=== PATIENT | female | born 1975 | race Caucasian/White ===

== ENCOUNTER 2017-03-25 05:59 | Inpatient (IN) | payer OTHER ==
[2017-02-25 14:00] VITALS: Ht 154.9 cm; Wt 94.9 kg
--- NOTE | 2017-02-25 14:48 | PAT Medication Instructions ---
Service Date Feb 25, 2017. Current Home Medication List Methimazole (Methimazole), 1 TAB PO HS Ondansetron Hcl (Zofran), 4 MG PO UD PRN for Nausea Oxycodone/Acetaminophen 5MG/325MG (Percocet 5MG/325MG), 0.5 TABLET PO UD PRN for Pain Prasterone (Dhea) (Dhea), QAM Propranolol (Inderal), 40 MG PO HS Ranitidine (Zantac), 150 MG PO HS Sumatriptan Succinate (Imitrex), 100 MG PO PRN Vortioxetine HBr (Trintellix), 1 TAB PO HS [Adrenal Supplement], BID [Dim], Unknown Dose QAM [Estrogen...] [Progesteron], 1 APPLN TOP HS Medication Instructions For Your Scheduled Surgery [Estrogen Pellets] - continue as directed - Hold the following medications 24 hours prior to surgery: [Progesterone], 1 APPLN TOP HS - Hold the following medications the morning of surgery: [Dim], Unknown Dose QAM Prasterone (Dhea) (Dhea), QAM - Take the following medications the morning of surgery with a sip of water: Sumatriptan Succinate (Imitrex), 100 MG PO PRN Oxycodone/Acetaminophen 5MG/325MG (Percocet 5MG/325MG), 0.5 TABLET PO UD PRN for Pain (okay to take up to 4 hours prior to surgery if needed) Ondansetron Hcl (Zofran), 4 MG PO UD PRN for Nausea (if needed) [Adrenal Supplement], BID - Take the following medications as scheduled the night before surgery: Sumatriptan Succinate (Imitrex), 100 MG PO PRN(if needed) Propranolol (Inderal), 40 MG PO HS Oxycodone/Acetaminophen 5MG/325MG (Percocet 5MG/325MG), 0.5 TABLET PO UD PRN for Pain(if needed) Ondansetron Hcl (Zofran), 4 MG PO UD PRN for Nausea(if needed) Methimazole (Methimazole), 1 TAB PO HS Ranitidine (Zantac), 150 MG PO HS [Adrenal Supplement], BID Vortioxetine HBr (Trintellix), 1 TAB PO HS If you have any questions please call us at [phone] or [phone] or [phone]
--- NOTE | 2017-02-25 15:06 | HISTORY & PHYSICAL EXAMINATION ---
DATE OF ADMISSION: 03/25/2017 CHIEF COMPLAINT: Bilateral knee pain. HISTORY OF PRESENT ILLNESS: Jennifer is a 41-year-old female with a multiple year history of bilateral knee pain. The patient rates her pain at 9-10/10. She has pain with her daily activities. She has limited standing and walking tolerance. Pain is worse with weightbearing. The patient has had a left knee arthroscopy, physical therapy, injections, and bracing without relief. She is unable to take NSAIDs due to her recent gastric sleeve surgery. She has failed conservative treatment and is scheduled for bilateral knee replacement. PAST MEDICAL HISTORY: Sleep apnea with CPAP, hyperthyroidism and anxiety. She denies heart disease, diabetes or DVT. PAST SURGICAL HISTORY: Gastric sleeve, partial thyroidectomy, oophorectomy, multiple knee arthroscopy on the left, exploratory laparotomy and lithotripsy. SOCIAL HISTORY: The patient denies alcohol or tobacco use. She lives in a 2-story home. She is and self employed. FAMILY HISTORY: Negative for DVT. MEDICATIONS: Trintellix 10 mg daily, propranolol 40 mg daily, ranitidine 150 mg b.i.d., Methazel 1 mg b.i.d., Imitrex 100 mg daily p.r.n., and Zofran 4 mg p.r.n. ALLERGIES: LATEX AND KETAMINE. REVIEW OF SYSTEMS: See HPI. Ten other systems reviewed. Also, positive for chills and cough. PHYSICAL EXAMINATION: VITAL SIGNS: Height 5 feet 1 inch and weight 210 pounds. BMI is 40. GENERAL: This is a well-developed and well-nourished female, who is alert and oriented x3. Mood and affect are appropriate. HEENT: Normocephalic and atraumatic. Mucous membranes are moist and intact. NECK: Supple without lymphadenopathy. HEART: Regular rate and rhythm without murmurs, rubs or gallops. LUNGS: Clear to auscultation without wheezes or rhonchi. ABDOMEN: Soft and nontender. Bowel sounds are equal and active. EXTREMITIES: No ecchymosis, redness or warmth. No effusion. No distal edema. She has neutral alignment. Range of motion is from 0-115 degrees with +1 laxity. She is neurovascularly intact with +5/5 strength. She does have scars noted on the left from her previous arthroscopy. Otherwise exam is the same. X-RAY EXAMINATION: AP and lateral views show joint space narrowing and osteophyte formation. IMPRESSION: Degenerative joint disease, bilateral knees. PLAN: The patient will be admitted for a bilateral total knee arthroplasty. We will plan on aspirin for DVT prophylaxis. If cleared by her GI surgeon, may need to consider Xarelto or Lovenox given her current NSAID sensitivity. The patient is considering a short stay at [facility] postoperatively. WALLY
[2017-02-25 15:23] LABS: BASO % 0.4 %; BASO ABS # 0.02 K/uL (0-0.2); EOS % 2.7 %; EOS ABS # 0.14 K/uL (0-0.5); HEMOGLOBIN 15.3 g/dL (12.0-16.0); IG# 0.01 K/uL (0.00-0.02); LYMPH % 47.5 %; LYMPH ABS # 2.47 K/uL (1.2-3.4); MEAN CELL VOLUME 89.6 fL (80-100); MEAN CORPUSCULAR HEMOGLOBIN 31.2 pg (25-34); MEAN CORPUSCULAR HGB CONC 34.8 g/dl (32-36); MEAN PLATELET VOLUME 10.6 fL (7.4-10.4); MONO ABS # 0.47 K/uL (0.11-0.59); NEUT % 40.2 %; NEUT ABS # 2.09 K/uL (1.4-6.5); PLATELET COUNT 183 K/uL (130-400); RED CELL DISTRIBUTION WIDTH CV 13.9 % (11.5-14.5); RED CELL DISTRIBUTION WIDTH SD 46.1 fL (36.4-46.3)
[2017-02-25 15:31] LABS: PTT PATIENT 27.5 SECONDS (21.0-31.0)
--- NOTE | 2017-02-25 15:47 | DIAGNOSTIC IMAGING REPORT ---
CHEST 2 VIEWS ROUTINE HISTORY: Preop. COMPARISON: None. FINDINGS: The lungs are clear. Cardiac silhouette is normal in size. No pleural effusions. No pneumothorax. IMPRESSION: No acute process. Electronically signed by: Darnell Borrero M.D. 02/25/2017 3:46 PM Dictated Date/Time: 02/25/2017 3:41 PM
[2017-02-25 16:43] LABS: ALBUMIN 3.6 gm/dl (3.4-5.0); CREATININE 0.69 mg/dl (0.60-1.20); POTASSIUM 4.1 mmol/L (3.5-5.1)
[2017-02-26 06:58] LABS: HEMOGLOBIN A1C 5.5 % (4.5-5.6)
[~2017-03-25] VITALS: Ht 154.9 cm; Wt 94.9 kg
[2017-03-25] VITALS (10 sets, daily range): BP systolic 97–132; BP diastolic 61–82; PULSE 46–88; TEMP 36.2–36.5; O2SAT 93–100
[~2017-03-25 05:59] MED LIST: ADRENAL SUPPLEMENT; CELEBREX - ALLERGY NOTED TO ORDERED MEDICATION SCH; DIM; ONDA4TAB46 PO; OXYC-57 PO; PRAS1CAP3; PROGESTERON TOP; PROP20TA67 PO; SUMA100T16 PO; TPZ5 PO; VORT10TA12 PO; ZNTT/150 PO; [UNRECOGNIZED DRUG - CODE]; [UNRECOGNIZED DRUG - REMARK] SCH
[2017-03-25] MEDS ORDERED: LACTATED RINGER'S 1000ML 1,000 ML IV SCH (06:00)
[2017-03-25] MEDS ORDERED: CEFAZOLIN 2000MG IV PUSH 10 ML IV SCH (06:00)
[2017-03-25] MEDS ORDERED: CeleBREX 200 MG CAP PO SCH (06:00)
[2017-03-25] MEDS ORDERED: LACTATED RINGER'S 1000ML 500 ML IV SCH (06:00)
[2017-03-25] MEDS ORDERED: FAMOTIDINE 20 MG TAB PO SCH (06:00)
[2017-03-25] MEDS ORDERED: DEXAMETHASONE 4 MG TAB PO SCH (06:00)
[2017-03-25] MEDS ORDERED: GABAPENTIN 300 MG CAP PO SCH (06:00)
[2017-03-25] MEDS ORDERED: METOCLOPRAMIDE HCL 10 MG TAB PO SCH (06:00)
[2017-03-25] MEDS ORDERED: ACETAMINOPHEN 500 MG TAB PO SCH (06:00)
[2017-03-25] MEDS ORDERED: ROPIVACAINE 5MG/ML 30 ML 150 MG, BUPIVACAINE 0.5% MPF INJ 30 ML, EpINEphrine HCL INJ 0.... INFIL SCH ×16 (06:00)
[2017-03-25] MEDS ORDERED: LACTATED RINGER'S 1000ML IV SCH (06:00)
[2017-03-25] MEDS ORDERED: BUPIVACAINE 0.25% 30 ML VIAL ONE (06:26)
[2017-03-25] MEDS ORDERED: BUPIVACAINE 0.5 % 5 MG/1 ML PF 10ML VIAL ONE (06:26)
[2017-03-25] MEDS ORDERED: FENTANYL CITRATE INJ 50 MCG/1 ML 2 ML VIAL ONE ×2 (06:29→08:43)
[2017-03-25] MEDS ORDERED: MIDAZOLAM HCL 1 MG/ML 2ML VIAL ONE ×3 (06:29→08:33)
[2017-03-25] MEDS ORDERED: PROPOFOL IV EMULSION 10 MG/ML 20 ML VIAL IV ONE ×3 (06:30→10:33)
[2017-03-25] MEDS: TRANEXAMIC ACID INJ 1,000 MG in SYRINGE 0 ML IV SCH ×2 (06:30→07:52)
--- NOTE | 2017-03-25 07:00 | History & Physical Bridge Note ---
H&P Re-Evaluation Bridge Note: I have examined the patient, reviewed the History & Physical and in the interval since the performance of the History & Physical I have noted the following changes of clinical significance: No changes noted
[2017-03-25] MEDS ORDERED: BACITRACIN 50000 UNIT VIAL ONE (07:20)
[2017-03-25] MEDS ORDERED: POVIDONE-IODINE OP SOLN 30 ML BTL ONE (07:20)
[2017-03-25] MEDS ORDERED: ROPIVACAINE 0.5% 5 MG/ML 30 ML VIAL ONE (07:58)
[2017-03-25] MEDS ORDERED: ATROPINE SULFATE 0.1 MG/ML 5ML SYR IV PRN ×2 (08:45→11:15)
[2017-03-25] MEDS ORDERED: EpHEDrine SULFATE INJ 50 MG/ML AMP IV PRN ×2 (08:45→11:15)
[2017-03-25] MEDS ORDERED: NALOXONE HCL 0.4 MG/1 ML VIAL/CARP IV PRN (08:45)
[2017-03-25] MEDS ORDERED: ONDANSETRON INJ 2 MG/ML 2 ML VIAL IV PRN (08:45)
[2017-03-25] MEDS ORDERED: FLUMAZENIL 0.1 MG/1 ML 10 ML VIAL IV PRN (08:45)
--- NOTE | 2017-03-25 10:30 | [facility] Operative Report ---
Operative Report Operative Date Mar 25, 2017. Pre-Operative Diagnosis Degenerative Joint Disease, Bilateral Knees Post-Operative Diagnosis Degenerative Joint Disease, Bilateral Knees Procedure(s) Performed Bilateral Total Knee Arthroplasty utilizing Macedo & Nephew journey 2 patient matched total knee arthroplasty right size 3 femur to tibia 12 poly-29 oval patella left size 3 femur to tibia [address] Sabrina [address] Laron Spencer Supervisor Dock Surgeon(s) Wilmer Vargas PA-C Estimated Blood Loss Right Knee = 5ml; Left Knee = 5 ml Findings Patient presents with long-standing history of severe bilateral DJD she's failed attempts at conservative management physical therapy anti-inflammatories relative rest activity modification screws and rhonchi gastric bypass surgery attempt for further weight loss still has a continued complaints one going pain varus alignment subchondral cystic formation marginal osteophytes and sclerosis presents for total knee arthroplasty Specimens Permanent Solution: A.) Right Knee Bone and Tissue B.) Left Knee Bone and Tissue Complication(s) None Disposition Recovery Room / PACU Indications Patient presents with long-standing history of severe DJD bilateral knees for bilateral total knee arthroplasty after failing times a conservative management including physical therapy anti-inflammatories relative rest activity modifications she's appreciate gastric bypass as well continues to complain with pain Nourse wants to bracing or a conservative management presents for total knee arthroplasty bilaterally Description of Procedure After proper prepping and draping of the bilateral lower extremities, an anterior midline incision was made over the region of the extensor extensor mechanism of the left knee. After meticulous hemostasis was obtained and maintained in subcutaneous tissues a medial parapatellar incision was made The patella was subluxed lateralward the medial lateral gutter were cleaned from any hypertrophic synovitis and scar tissue of the distal femoral block was placed and the distal femoral osteotomy cut was made subsequently the chamfers anterior and posterior osteotomy cuts were made utilizing the 4-in-1 block the tibia was subsequently subluxed anteriorward medial and ateral meniscal remnants were excised in their entirety remnants of the anterior and posterior cruciate ligaments were excised in their entirety excellent exposure of the proximal tibia was obtained the tibial osteotomy guide was placed on the proximal tibial osteotomy cut was made once again the knee was irrigated with copious amounts of sterile saline solution the patella was subsequently everted lateralward thickened scar tissue around the patella was removed the patella was subsequently cut utilizing a freehand technique and was drilled prepared for final preparation and placement of patella socially flexion-extension gaps were checked and the equal and symmetric trials were placed to the appropriate femoral and tibial trials with poly-spacer being placed for equal flexion and extension gaps and full range of motion including extension to 0 and flexion to 140 the trial components after having been taken to recovery range of motion was subsequently removed meticulous hemostasis was obtained and maintained subsequently a knee block injection of joint cocktail including ropivacaine 0.5 % 150 mg. Bupivacaine 0.5% epinephrine 1-200,030 mL's toradol 30 mg dexamethasone 4 mg ketamine 10 mg clonidine 100 micrograms normal saline solution 30 mg was infiltrated into the soft tissues of the posterior knee medial lateral gutters and periosteal synovium special attention was paid to protect neurovascular structures at all times subsequently trial components having been removed the knee was irrigated with sterile saline solution. debris was removed the proximal tibia was subsequently prepared and was made ready for the placement of the tibial component tibial component was also cemented and tamped into position the femoral component was subsequently placed and cemented in the position the patellar component was subsequently cemented in position because hemostasis once again obtained and maintained wound having been thoroughly irrigated with debridement and debridement lavage was performed as well as a medial parapatellar incision closed with #1 Vicryl in interrupted fashion subcutaneous was closed with #2 Vicryl skin was closed with skin clips Next, an anterior midline incision was made over the region of the extensor extensor mechanism of the right knee. After meticulous hemostasis was obtained and maintained in subcutaneous tissues a medial parapatellar incision was made The patella was subluxed lateralward the medial lateral gutter were cleaned from any hypertrophic synovitis and scar tissue of the distal femoral block was placed and the distal femoral osteotomy cut was made subsequently the chamfers anterior and posterior osteotomy cuts were made utilizing the 4-in-1 block the tibia was subsequently subluxed anteriorward medial and ateral meniscal remnants were excised in their entirety remnants of the anterior and posterior cruciate ligaments were excised in their entirety excellent exposure of the proximal tibia was obtained the tibial osteotomy guide was placed on the proximal tibial osteotomy cut was made once again the knee was irrigated with copious amounts of sterile saline solution the patella was subsequently everted lateralward thickened scar tissue around the patella was removed the patella was subsequently cut utilizing a freehand technique and was drilled prepared for final preparation and placement of patella socially flexion-extension gaps were checked and the equal and symmetric trials were placed to the appropriate femoral and tibial trials with poly-spacer being placed for equal flexion and extension gaps and full range of motion including extension to 0 and flexion to 140 the trial components after having been taken to recovery range of motion was subsequently removed meticulous hemostasis was obtained and maintained subsequently a knee block injection of joint cocktail including ropivacaine 0.5 % 150 mg. Bupivacaine 0.5% epinephrine 1-200,030 mL's toradol 30 mg dexamethasone 4 mg ketamine 10 mg clonidine 100 micrograms normal saline solution 30 mg was infiltrated into the soft tissues of the posterior knee medial lateral gutters and periosteal synovium special attention was paid to protect neurovascular structures at all times subsequently trial components having been removed the knee was irrigated with sterile saline solution. debris was removed the proximal tibia was subsequently prepared and was made ready for the placement of the tibial component tibial component was also cemented and tamped into position the femoral component was subsequently placed and cemented in the position the patellar component was subsequently cemented in position because hemostasis once again obtained and maintained wound having been thoroughly irrigated with debridement and debridement lavage was performed as well as a medial parapatellar incision closed with #1 Vicryl in interrupted fashion subcutaneous was closed with #2 Vicryl skin was closed with skin clips.. PA-C was necessary for prepping and drapping as well as wound closure of deep fascia Sub cutaneous tissue and skin and was necessary for the case. A sterile compressive dressings were placed, patient was taken to recovery in stable condition of report dictated by Tj I attest to the content of the Intraoperative Record and any orders documented therein. Any exceptions are noted below. I attest to the content of the Intraoperative Record and any orders documented therein. Any exceptions are noted below.
[2017-03-25] MEDS ORDERED: SUMATRIPTAN SUCC TAB 100 MG TAB PO PRN (11:15)
[2017-03-25] MEDS ORDERED: ALUMINUM/MAGNESIUM/SIMETH (MAALOX MAX) 30 ML UDC PO PRN (11:15)
[2017-03-25] MEDS ORDERED: MoRPHine SULFATE 2 MG/ML CARP IV PRN (11:15)
--- NOTE | 2017-03-25 11:44 | DIAGNOSTIC IMAGING REPORT ---
L KNEE 1 OR 2 VIEWS ROUTINE CLINICAL HISTORY: Postoperative evaluation. COMPARISON: None FINDINGS: Alignment of the total left knee arthroplasty is in anatomic. There is no fracture or unexpected radiopaque foreign body. Surgical drains are in place. IMPRESSION: Expected findings following total left knee arthroplasty. Electronically signed by: Brien Raymundo M.D. 03/25/2017 11:43 AM Dictated Date/Time: 03/25/2017 11:42 AM
--- NOTE | 2017-03-25 11:45 | DIAGNOSTIC IMAGING REPORT ---
R KNEE 1 OR 2 VIEWS ROUTINE CLINICAL HISTORY: Postoperative evaluation. COMPARISON: None FINDINGS: Alignment of the total right knee arthroplasty is anatomic. There is no fracture or unexpected radiopaque foreign body. Surgical drains are in place. IMPRESSION: Expected findings following total right knee arthroplasty. Electronically signed by: Brien Raymundo M.D. 03/25/2017 11:43 AM Dictated Date/Time: 03/25/2017 11:43 AM
--- NOTE | 2017-03-25 11:55 | Anesthesiology Progress Note ---
Anesthesia Post Op Note Date & Time Mar 25, 2017 at 11:55 Vital Signs Pain Intensity: 0 Vital Signs Past 12 Hours Date Time Temp Pulse Resp B/P (MAP) Pulse Ox O2 Delivery O2 Flow Rate FiO2 03/25/17 11:50 54 18 111/64 99 Nasal Cannula 2 03/25/17 11:40 59 18 103/61 99 Nasal Cannula 2 03/25/17 11:30 66 18 107/69 99 Nasal Cannula 2 03/25/17 11:20 54 18 112/63 100 Oxymask 10 03/25/17 11:13 36.0 59 18 94/62 100 Oxymask 10 03/25/17 06:59 36.5 72 18 132/82 97 Room Air Notes Mental Status: alert / awake / arousable, participated in evaluation Pt Amnestic to Procedure: Yes Nausea / Vomiting: adequately controlled Pain: adequately controlled Airway Patency, RR, SpO2: stable & adequate BP & HR: stable & adequate Hydration State: stable & adequate Neuraxial Anesthesia: was administered, sensory block is resolving Anesthetic Complications: no major complications apparent
[2017-03-25] MEDS: D5W AND 1/2NSS + 20MEQ KCL 1,000 ML IV SCH (14:35)
[2017-03-25] MEDS ORDERED: ACETAMINOPHEN IV 100 ML IV SCH (15:00)
[2017-03-25] MEDS ORDERED: MoRPHine SULFATE 10 MG/ML CARP/VIAL IV PRN (15:00)
[2017-03-25] MEDS ORDERED: MoRPHine SULFATE 4 MG/ML 1 ML CARP\\VIAL IV PRN (15:00)
[2017-03-25] MEDS: ACETAMINOPHEN IV 1000MG/100ML IV SCH ×2 (15:48→22:40)
[2017-03-25] MEDS: OXYCODONE HCL IR 5 MG TAB (IMMEDIATE RELEASE) PO PRN ×2 (16:39→20:54)
[2017-03-25] MEDS: CEFAZOLIN IV 2,000 MG in SYRINGE 0 ML IV SCH (16:43)
[2017-03-25] MEDS ORDERED: NURSING VERBAL MED ORDER ONE (19:45)
[2017-03-25] MEDS: TRAMADOL HCL 50 MG TAB PO PRN (19:47)
[2017-03-25] MEDS: DOCUSATE SODIUM 100 MG CAP PO SCH (20:40)
[2017-03-25] MEDS: METHIMAZOLE 5 MG TAB PO SCH (20:40)
[2017-03-25] MEDS: RANITIDINE HCL 150 MG TAB PO SCH (20:40)
[2017-03-25] MEDS: PROPRANOLOL HCL 20 MG TAB PO SCH (20:42)
[2017-03-25] MEDS: SENNA 8.6 MG TAB PO SCH (20:42)
[2017-03-25] MEDS: ONDANSETRON INJ 2 MG/ML 2 ML VIAL IV PRN (20:53)
[2017-03-25] MEDS: VORTIOXETINE HBR 10 MG TAB PO SCH (21:00)
[2017-03-25] MEDS: LORAZEPAM INJ 0.5 MG in SYRINGE 0.75 ML IV PRN (22:40)
[2017-03-26] MEDS: D5W AND 1/2NSS + 20MEQ KCL 1,000 ML IV SCH ×2 (00:44→10:35)
[2017-03-26] MEDS: CEFAZOLIN IV 2,000 MG in SYRINGE 0 ML IV SCH (00:53)
[2017-03-26] MEDS: OXYCODONE HCL IR 5 MG TAB (IMMEDIATE RELEASE) PO PRN ×5 (00:54→21:28)
[2017-03-26 03:45] VITALS: BP 94/60; PULSE 79; TEMP 36.6; O2SAT 95
[2017-03-26] MEDS: TRAMADOL HCL 50 MG TAB PO PRN ×3 (04:02→16:45)
[2017-03-26] MEDS: ONDANSETRON INJ 2 MG/ML 2 ML VIAL IV PRN ×2 (05:24→17:14)
[2017-03-26 05:38] LABS: HEMATOCRIT 35.2 % (37-47); MEAN CORPUSCULAR HEMOGLOBIN 30.7 pg (25-34); MEAN CORPUSCULAR HGB CONC 34.1 g/dl (32-36); MEAN PLATELET VOLUME 10.6 fL (7.4-10.4); PLATELET COUNT 183 K/uL (130-400); RED CELL DISTRIBUTION WIDTH CV 13.5 % (11.5-14.5); RED CELL DISTRIBUTION WIDTH SD 44.5 fL (36.4-46.3); WHITE BLOOD COUNT 15.77 K/uL (4.8-10.8)
[2017-03-26 05:53] LABS: INR 1.1 (0.9-1.1)
[2017-03-26 06:11] LABS: CALCIUM 8.4 mg/dl (8.5-10.1); CREATININE 0.79 mg/dl (0.60-1.20); POTASSIUM 4.4 mmol/L (3.5-5.1)
[2017-03-26] MEDS: ACETAMINOPHEN IV 1000MG/100ML IV SCH ×3 (06:39→22:43)
--- NOTE | 2017-03-26 07:24 | Orthopedic Progress Note ---
Orthopedic Progress Note Date of Service Mar 26, 2017. Subjective Post OP Day: 1 Reports: complaints (knee pain), Denies: chest pain, SOB, nausea / vomiting, light headedness, calf pain Additional Notes: Pt states that pain meds do help but do not last long. Discussed adding Oxycontin to her regimen. Also would like to have a multivitamin. States that she has some pain in the back of the knees R>L and thighs. Some of the pain in the right posterior knee is radiating into the calf. No other complaints. Objective calves soft nontender, N/V intact, dressing C/D/I, A&O x3, toes mobile, hemovac drainage (L 130ml R 100ml) No increased pain with palpation. No point tenderness Date Time Temp Pulse Resp B/P (MAP) Pulse Ox O2 Delivery O2 Flow Rate FiO2 03/26/17 03:45 36.6 79 18 94/60 (71) 95 Room Air 03/25/17 22:55 36.5 65 18 118/67 (84) 93 Room Air 03/25/17 22:50 Room Air 03/25/17 20:39 74 98/61 (73) 03/25/17 19:10 36.2 88 18 102/63 (76) 95 Room Air 03/25/17 16:15 97 Nasal Cannula 03/25/17 15:18 36.2 81 18 98/62 (74) 97 Nasal Cannula 2.0 03/25/17 14:15 36.2 49 16 97/62 (74) 100 Nasal Cannula 2.0 03/25/17 13:15 36.2 57 15 109/67 (81) 98 Nasal Cannula 2.0 03/25/17 12:45 36.3 46 15 101/67 (78) 100 Nasal Cannula 2.0 03/25/17 12:15 99 Nasal Cannula 3.0 03/25/17 12:15 36.3 56 16 111/65 (80) 99 Nasal Cannula 3.0 03/25/17 12:15 Nasal Cannula 3.0 03/25/17 11:55 36.2 54 18 122/69 99 Nasal Cannula 2 03/25/17 11:50 54 18 111/64 99 Nasal Cannula 2 03/25/17 11:40 59 18 103/61 99 Nasal Cannula 2 03/25/17 11:30 66 18 107/69 99 Nasal Cannula 2 03/25/17 11:20 54 18 112/63 100 Oxymask 10 03/25/17 11:13 36.0 59 18 94/62 100 Oxymask 10 Laboratory Results 24 Hours: Test 03/26/17 05:19 Hematocrit 35.2 % Hemoglobin 12.0 g/dL Prothromb Time International Ratio 1.1 Prothrombin Time 11.2 SECONDS Assessment & Plan Assessment: Bilateral TKA Sleep apnea with CPAP, hyperthyroidism and anxiety; h/o gastric sleeve placement Plan: PT/OT Planning for [facility] Inhouse Planning Pain Management: Oxycontin, Ultram, Morphine, IV Tylenol, Oxy IR DVT Prophylaxis: TEDs, SCDs, Lovenox Discharge Planning Discharge Planning: rehab hospital
[2017-03-26 07:25] VITALS: BP 98/67; PULSE 65; TEMP 36.5; O2SAT 93
[2017-03-26] MEDS ORDERED: VORTIOXETINE HBR 10 MG TAB PO SCH (09:00)
[2017-03-26] MEDS: DOCUSATE SODIUM 100 MG CAP PO SCH ×2 (09:20→21:32)
[2017-03-26] MEDS: ENOXAPARIN 40 MG/0.4 ML SYR SQ SCH (09:20)
[2017-03-26] MEDS: MULTIVITAMIN TAB PO SCH (09:24)
[2017-03-26] MEDS: OXYCODONE HCL 10 MG TABCR (OXYCONTIN) PO SCH ×2 (09:25→21:27)
--- NOTE | 2017-03-26 10:47 | Anesthesiology Progress Note ---
Anesthesia Post Op Note Date & Time Mar 26, 2017 at 10:47 Vital Signs Vital Signs Past 12 Hours Date Time Temp Pulse Resp B/P (MAP) Pulse Ox O2 Delivery O2 Flow Rate FiO2 03/26/17 07:25 36.5 65 18 98/67 (77) 93 Room Air 03/26/17 03:45 36.6 79 18 94/60 (71) 95 Room Air 03/25/17 22:55 36.5 65 18 118/67 (84) 93 Room Air 03/25/17 22:50 Room Air Notes Mental Status: alert / awake / arousable, participated in evaluation Pt Amnestic to Procedure: Yes Nausea / Vomiting: adequately controlled Pain: adequately controlled Airway Patency, RR, SpO2: stable & adequate BP & HR: stable & adequate Hydration State: stable & adequate Neuraxial Anesthesia: was administered, sensory block resolved Anesthetic Complications: no major complications apparent
[2017-03-26 11:17] VITALS: BP 100/57; PULSE 59; TEMP 36.7; O2SAT 93
[2017-03-26 15:01] VITALS: BP 111/72; PULSE 65; TEMP 36.7; O2SAT 98
--- NOTE | 2017-03-26 15:17 | Discharge Instructions ---
Discharge Instructions Date of Service Mar 26, 2017. Admission Reason for Admission: Bilateral Knee Osteoarthritis Discharge Discharge Diagnosis / Problem: Djd Bilateral Knees Discharge Goals Goal(s): Decrease discomfort, Improve function Activity Recommendations Activity Level: Assistance Required Therapies: Physical Therapy (TKA protocol), Occupational Therapy (ADL's and transfers) Weightbearing Status: Left weightbearing (as tolerated), Right weightbearing ( as tolerated) . Additional Information Patient informed of condition: Yes Advance Directives: No DNR: No Level of Care: Acute Rehab Communicable Disease: No Prognosis: Stable Lemus Catheter: No Instructions / Follow-Up Instructions / Follow-Up ACTIVITY RECOMMENDATIONS: SELF CARE INSTRUCTIONS AFTER TOTAL KNEE REPLACEMENT A. You may need to continue a physical therapy program after discharge from the hospital. There are several options available to you. Your doctor will assist you in selecting the best one for you. 1. An out-patient facility 2 to 3 times a week for therapy or home therapy. 2. Continue working on all exercises taught to you in the hospital. Your goals should be to increase bending of your knee to 90 degrees and beyond and to fully straighten your knee. B. You may progress at your own pace from walking with a walker or crutches to a cane; then to no assistive devices. C. Make walking a part of your daily routine. Be up as much as comfortable with rest periods throughout the day. Rest with leg elevation is very important. Use the ice wrap frequently for the first 3-4 weeks. D. There are no restrictions on activities. You may ride in a car, shop, participate in binding printer and all social activities. E. Wear the long elastic stockings (RUPA hose) 20 hours a day for 2 weeks after surgery. They can be removed several times a day for laundering and for a bath. F. You may shower, no tub baths until cleared by your doctor. SPECIAL CARE INSTRUCTIONS: VERY IMPORTANT TO READ AND REVIEW A. There are a few signs you need to watch for after you are home. Call [facility] if you notice any of the followin. Increased severe knee pain. Some pain is expected especially when you exercise. 2. Increased swelling in your leg or knee; pain or swelling of the calf muscle in either lower leg. 3. Any fluid drainage from the incision. 4. Shortness of breath or chest pain. B. Please call [facility] at if you have any concerns or questions about your operation or recovery. The doctor or his nurse will return your call promptly. C. You must take antibiotics before dental work, bladder, bowel or other surgery. Your doctor will provide you with a permanent care to carry describing this precaution. IMPORTANT: * REMEMBER TO TAKE YOUR LOVENOX DAILY. DR ARAYA WILL CONTINUE THE LOVENOX FOR A TOTAL OF 4 WEEKS * CALL IF INCREASED PAIN, REDNESS, DRAINAGE OR FEVER GREATER THAT 101. * WEAR RUAP HOSE 20 HOURS PER DAY FOR 2 WEEKS. * DERMABOND Prineo- This is a mesh tape dressing that is covered with glue. It should remain in place until the incision is properly healed, usually 10-14 days. This dressing is designed to naturally slough off. You may trim the excess mesh tape as it peels off. Incision may be briefly wet in a shower. Dry immediately by blotting with a clean, dry towel. Do not bath or swim until instructed by your doctor. Do not scratch, rub, or pick at the dressing. Do not apply any topical ointments or lotions until dressing is completely removed and/or instructed by your doctor. There may be a small piece of suture material at one end of your incision. Do not pull or trim this. If it is bothersome or catching on clothing, you may cover it with a band-aid. . * YOU MAY RESUME YOUR PROGESTERONE/ESTROGEN SUPPLEMENTS/CREAMS YOUR ACTIVITY INCREASES. FOLLOW UP VISIT: If appointment is not already scheduled: Please call [facility] to make a follow-up appointment for 2 weeks after your surgery at . Current Hospital Diet Patient's current hospital diet: Regular Diet Discharge Diet Recommended Diet: Regular Diet (No bread) Procedures Procedures Performed: Bilateral Total Knee Arthroplasty utilizing Macedo & Nephew journey 2 patient matched total knee arthroplasty right size 3 femur to tibia 12 poly-29 oval patella left size 3 femur to tibia 15 Sabrina 32 patella Pending Studies Studies pending at discharge: no Physician Orders On Transfer Dressing Changes: Daily prn. If wounds dry, may leave to open air Vital Signs: routine Laboratory Results Hemoglobin A1c Test 02/25/17 14:54 Range/Units Estimated Average Glucose 111 mg/dl Hemoglobin A1c 5.5 4.5-5.6 % Medical Emergencies . Who to Call and When: Medical Emergencies: If at any time you feel your situation is an emergency, please call 911 immediately. . Non-Emergent Contact Non-Emergency issues call your: Surgeon Call Non-Emergent contact if: temperature is above 101.5, your pain is not controlled, your pain is worsening, wound has increased drainage, wound has increased redness . . "Provider Documentation" section prepared by Wilmer Vargas. . Core Measure Problem Core Measures: None [place] Drug Monitoring Program Search Results: patient reviewed within database, no issues identified
[2017-03-26 17:40] VITALS: BP 123/80; PULSE 78; TEMP 37.3; O2SAT 96
[2017-03-26] MEDS: LORAZEPAM INJ 0.5 MG in SYRINGE 0.75 ML IV PRN (18:01)
[2017-03-26] MEDS ORDERED: LORAZEPAM INJ 0.5 MG in SYRINGE 0.75 ML IV ONE (19:15)
[2017-03-26] MEDS: HYDROmorphone INJ 0.5 MG/0.5 ML SYR IV PRN (20:26)
[2017-03-26] MEDS: METHIMAZOLE 5 MG TAB PO SCH (21:00)
[2017-03-26] MEDS: VORTIOXETINE HBR 10 MG TAB PO SCH (21:00)
[2017-03-26] MEDS: PROPRANOLOL HCL 20 MG TAB PO SCH (21:00)
[2017-03-26] MEDS: RANITIDINE HCL 150 MG TAB PO SCH (21:32)
[2017-03-26] MEDS: SENNA 8.6 MG TAB PO SCH (21:32)
[2017-03-26 22:58] VITALS: BP 98/63; PULSE 71; TEMP 36.7; O2SAT 98
--- NOTE | 2017-03-26 23:21 | Progress Note ---
Subjective Date of Service: Mar 26, 2017. Subjective Pt evaluation today including: conversation w/ patient, conversation w/ family (), physical exam, lab review, conversation w/ building performance consultant, review of inpatient medication list Pain: severe bilateral knee pain PO Intake: poor, nauseated Voiding: no voiding problems called by MEG Weiss due to concerns for serotonin syndrome the patient has had serotonin syndrome in the past, interaction with her SSRI and cold medicine, was mild patient had bilateral TKA on 03/25, pain has been difficult to control Ultram 100mg PRN added today to take in between Oxycodone this evening she had diffuse tremors and they resolved with Ativan 0.5mg 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, discussed that she had experienced serotonin syndrome before reviewed labs, stable other than mild leukocytosis, likely reactive from bilateral TKA Review of Systems Constitutional: + weakness, + fatigue, No fever, No chills Musculoskeletal: + joint pain (bilateral knees), + swelling (knees) Female : + urinary frequency Neurologic: + problem reported (diffuse tremors) Psychiatric: + anxiety, + insomnia All Other Systems: Reviewed and Negative Medications Current Inpatient Medications Medications (Trade) Dose Ordered Sig/Lizet Route Start Time Stop Time Status Last Admin Dose Admin Methimazole (Methimazole Tab) 5 mg HS PO 03/25/17 21:00 04/24/17 20:59 03/25/17 20:40 5 MG Propranolol HCl (Inderal Tab) 40 mg HS PO 03/25/17 21:00 04/24/17 20:59 Ranitidine HCl (zANTac TAB) 150 mg HS PO 03/25/17 21:00 04/24/17 20:59 03/26/17 21:32 150 MG Sumatriptan Succinate (Imitrex Tab) 100 mg UD PRN PO 03/25/17 11:15 04/24/17 11:14 Oxycodone HCl (Roxicodone Immediate Rel Tab) 1 TABLET FOR PAIN RATING... Q4H PRN PO 03/25/17 11:15 04/08/17 11:14 03/26/17 21:28 10 MG Senna (Senokot Tab) 17.2 mg HS PO 03/25/17 21:00 04/24/17 20:59 03/26/17 21:32 17.2 MG Docusate Sodium (coLACE CAP) 100 mg BID PO 03/25/17 21:00 04/24/17 20:59 03/26/17 21:32 100 MG Al Hydrox/Mg Hydrox/Simethicone (Maalox Max Susp) 15 ml Q4H PRN PO 03/25/17 11:15 04/24/17 11:14 Enoxaparin Sodium (Lovenox Inj) 40 mg Q24H SQ 03/26/17 09:00 04/25/17 08:59 03/26/17 09:20 40 MG Acetaminophen 100 ml @ 400 mls/hr Q8H IV 03/25/17 15:00 04/24/17 14:59 03/26/17 22:43 400 MLS/HR Ondansetron HCl (Zofran Inj) 4 mg Q8 PRN IV 03/25/17 18:45 04/24/17 18:44 03/26/17 17:14 4 MG Vortioxetine (Trintellix) 10 mg HS PO 03/25/17 21:00 04/24/17 20:59 03/25/17 21:00 10 MG Oxycodone HCl (Oxycontin Tab) 10 mg Q12 PO 03/26/17 09:00 04/09/17 08:59 03/26/17 21:27 10 MG Multivitamins (Multivitamin Tab) 1 tab QAM PO 03/26/17 09:00 04/25/17 08:59 03/26/17 09:24 1 TAB Hydromorphone HCl (Dilaudid Inj) 0.5 mg Q4HWA PRN IV 03/26/17 08:00 04/09/17 07:59 03/26/17 20:26 0.5 MG Lorazepam 0.5 mg/ Syringe 1 ml @ 0.5 mls/min Q6H PRN IV 03/27/17 01:00 04/26/17 00:59 Objective Vital Signs Date Time Temp Pulse Resp B/P (MAP) Pulse Ox O2 Delivery O2 Flow Rate FiO2 03/26/17 17:40 37.3 78 18 123/80 (94) 96 Room Air 03/26/17 16:20 Room Air 03/26/17 15:01 36.7 65 18 111/72 (85) 98 Room Air 03/26/17 11:17 36.7 59 19 100/57 (71) 93 Room Air 03/26/17 07:52 Room Air 03/26/17 07:25 36.5 65 18 98/67 (77) 93 Room Air 03/26/17 03:45 36.6 79 18 94/60 (71) 95 Room Air Physical Exam General Appearance: no apparent distress, + obese Eyes: normal inspection, EOMI, sclerae normal, + pertinent finding (no nystagmus) ENT: normal ENT inspection, hearing grossly normal, pharynx normal Neck: supple, no adenopathy, no JVD Respiratory/Chest: chest non-tender, lungs clear, normal breath sounds, no respiratory distress, no accessory muscle use Cardiovascular: regular rate, rhythm, no edema, no gallop, no JVD, no murmur Abdomen: normal bowel sounds, non tender, soft, no organomegaly Extremities: normal capillary refill, pelvis stable, + pertinent finding ( bilateral knees tender, swollen, wrapped, decreased ROM) Neurologic/Psychiatric: vp patient II-XII nml as tested, oriented x 3, + motor weakness, + depressed affect, + pertinent finding (mild hyper-reflexia in upper extremities) Skin: normal color, warm/dry, no rash Laboratory Results Last 24 Hours Test 03/26/17 05:19 White Blood Count 15.77 K/uL Red Blood Count 3.91 M/uL Hemoglobin 12.0 g/dL Hematocrit 35.2 % Mean Corpuscular Volume 90.0 fL Mean Corpuscular Hemoglobin 30.7 pg Mean Corpuscular Hemoglobin Concent 34.1 g/dl RDW Standard Deviation 44.5 fL RDW Coefficient of Variation 13.5 % Platelet Count 183 K/uL Mean Platelet Volume 10.6 fL Prothrombin Time 11.2 SECONDS Prothromb Time International Ratio 1.1 Sodium Level 137 mmol/L Potassium Level 4.4 mmol/L Chloride Level 107 mmol/L Carbon Dioxide Level 26 mmol/L Anion Gap 4.0 mmol/L Blood Urea Nitrogen 13 mg/dl Creatinine 0.79 mg/dl Est Creatinine Clear Calc Drug Dose 99.6 ml/min Estimated GFR () 108.5 Estimated GFR (Non- 93.6 BUN/Creatinine Ratio 16.6 Random Glucose 176 mg/dl Calcium Level 8.4 mg/dl Assessment and Plan 42 yo female with h/o obesity s/p gastric sleeve, depression/anxiety, severe osteoarthritis, consulted for possible serotonin syndrome - Possible serotonin syndrome: in this case it would be an interaction with Trintellex and Ultram she had some diffuse tremors and mild hyper reflexia making diagnosis possible no hyperthermia, no tachycardia or elevated BP, no clonus could be elicited labs are normal, specifically HCO3 will stop Ultram, hold Trintellex, treat with Ativan 0.5mg IV q6 PRN - Bilateral knee pain: continue Oxycodone, will use Dilaudid for breakthrough patient breathing well, no chest pressure, + flatus, urinating well continue Zofran for nausea DVT prophylaxis per ortho d/c planning per ortho other chronic medical issues are stable, we will continue to follow
[2017-03-27] MEDS: HYDROmorphone INJ 0.5 MG/0.5 ML SYR IV PRN ×5 (00:34→22:05)
[2017-03-27] MEDS: OXYCODONE HCL IR 5 MG TAB (IMMEDIATE RELEASE) PO PRN ×5 (04:12→23:07)
[2017-03-27] MEDS: LORAZEPAM INJ 0.5 MG in SYRINGE 0.75 ML IV PRN ×3 (04:17→20:23)
[2017-03-27] MEDS: ACETAMINOPHEN IV 1000MG/100ML IV SCH ×2 (06:38→14:35)
[2017-03-27 07:55] VITALS: BP 103/61; PULSE 68; TEMP 36.6; O2SAT 98
[2017-03-27] MEDS: ENOXAPARIN 40 MG/0.4 ML SYR SQ SCH (09:00)
[2017-03-27] MEDS: ONDANSETRON INJ 2 MG/ML 2 ML VIAL IV PRN (09:00)
[2017-03-27] MEDS: DOCUSATE SODIUM 100 MG CAP PO SCH ×2 (09:00→21:07)
[2017-03-27] MEDS: MULTIVITAMIN TAB PO SCH (09:00)
--- NOTE | 2017-03-27 09:07 | Orthopedic Progress Note ---
Orthopedic Progress Note Date of Service Mar 27, 2017. Subjective Post OP Day: 2 Additional Notes: Tired this AM. "Had a rough night". IV infiltrated and feels pain med went in subcutaneously rather than through the IV for breakthrough pain. Pt seen by Dr Larry last night for possible Serotonin syndrome. Meds changed accordingly. Pt having some pain now in the knees but better control. States that the knees feel stiff to her this AM which discussed is normal for the course in the AM. Planning on getting up to bedside for breakfast. Objective calves soft nontender, N/V intact, incision C/D/I, A&O x3, toes mobile Date Time Temp Pulse Resp B/P (MAP) Pulse Ox O2 Delivery O2 Flow Rate FiO2 03/27/17 07:55 36.6 68 15 103/61 (75) 98 Room Air 03/27/17 00:15 Room Air CPAP 03/26/17 22:58 36.7 71 17 98/63 (75) 98 Room Air 03/26/17 17:40 37.3 78 18 123/80 (94) 96 Room Air 03/26/17 16:20 Room Air 03/26/17 15:01 36.7 65 18 111/72 (85) 98 Room Air 03/26/17 11:17 36.7 59 19 100/57 (71) 93 Room Air Assessment & Plan Assessment: POD 2 Bilateral TKA ? Serotonin Syndrome Sleep apnea with CPAP, hyperthyroidism and anxiety; h/o gastric sleeve placement Plan: PT/OT Planning for [facility] (approved for transfer) Medical Management - appreciate Dr Larry' consult Inhouse Planning Pain Management: Oxycontin, Morphine, IV Tylenol, Oxy IR DVT Prophylaxis: TEDs, SCDs, Lovenox Discharge Planning Discharge Planning: rehab hospital
[2017-03-27] MEDS: OXYCODONE HCL 10 MG TABCR (OXYCONTIN) PO SCH ×2 (09:08→21:07)
[2017-03-27] MEDS ORDERED: OXYSR10 PO (09:15)
[2017-03-27] MEDS ORDERED: SENN-61 PO (09:15)
[2017-03-27] MEDS ORDERED: LVNIS40 SQ (09:15)
[2017-03-27] MEDS ORDERED: ACET-1138 PO (09:15)
[2017-03-27] MEDS ORDERED: RXC5 PO (09:15)
--- NOTE | 2017-03-27 13:41 | Hospitalist Progress Note ---
Hospitalist Progress Note Date of Service Mar 27, 2017. (Venus eRed ., PA-C) Subjective Pt evaluation today including: conversation w/ patient, conversation w/ family ( at bedside ), physical exam, lab review, review of inpatient medication list Voiding: no voiding problems Patient resting in bed. Eating and drinking OK. +flatus, no BM. Pain is tolerable. at bedside- family practice physician. Last evening patient started to shake. Has h/o serotonin syndrome. He now thinks her shakes occur when the pain starts to increase. Patient denies tremors, n/v, palpitations, fevers Patient denies any fever, chills, sweats, lightheadedness, dizziness, vision changes, CP, palpitations, edema, SOB, wheezing, cough, abdominal pain, nausea, vomiting, diarrhea, urinary symptoms, melena, numbness/tingling, weakness, anxiety/depression, active bleeding, or new skin discoloration/changes. Per RN, no s/s of serotonin syndrome. (Venus Reed ., PA-C) Medications Current Inpatient Medications Medications (Trade) Dose Ordered Sig/Lizet Route Start Time Stop Time Status Last Admin Dose Admin Methimazole (Methimazole Tab) 5 mg HS PO 03/25/17 21:00 04/24/17 20:59 03/25/17 20:40 5 MG Propranolol HCl (Inderal Tab) 40 mg HS PO 03/25/17 21:00 04/24/17 20:59 Ranitidine HCl (zANTac TAB) 150 mg HS PO 03/25/17 21:00 04/24/17 20:59 03/26/17 21:32 150 MG Sumatriptan Succinate (Imitrex Tab) 100 mg UD PRN PO 03/25/17 11:15 04/24/17 11:14 Oxycodone HCl (Roxicodone Immediate Rel Tab) 1 TABLET FOR PAIN RATING... Q4H PRN PO 03/25/17 11:15 04/08/17 11:14 03/27/17 10:24 10 MG Senna (Senokot Tab) 17.2 mg HS PO 03/25/17 21:00 04/24/17 20:59 03/26/17 21:32 17.2 MG Docusate Sodium (coLACE CAP) 100 mg BID PO 03/25/17 21:00 04/24/17 20:59 03/27/17 09:00 100 MG Al Hydrox/Mg Hydrox/Simethicone (Maalox Max Susp) 15 ml Q4H PRN PO 03/25/17 11:15 04/24/17 11:14 Enoxaparin Sodium (Lovenox Inj) 40 mg Q24H SQ 03/26/17 09:00 04/25/17 08:59 03/27/17 09:00 40 MG Acetaminophen 100 ml @ 400 mls/hr Q8H IV 03/25/17 15:00 04/24/17 14:59 03/27/17 06:38 400 MLS/HR Ondansetron HCl (Zofran Inj) 4 mg Q8 PRN IV 03/25/17 18:45 04/24/17 18:44 03/27/17 09:00 4 MG Vortioxetine (Trintellix) 10 mg HS PO 03/25/17 21:00 04/24/17 20:59 Future Hold 03/25/17 21:00 10 MG Oxycodone HCl (Oxycontin Tab) 10 mg Q12 PO 03/26/17 09:00 04/09/17 08:59 03/27/17 09:08 10 MG Multivitamins (Multivitamin Tab) 1 tab QAM PO 03/26/17 09:00 04/25/17 08:59 03/27/17 09:00 1 TAB Hydromorphone HCl (Dilaudid Inj) 0.5 mg Q4HWA PRN IV 03/26/17 08:00 04/09/17 07:59 03/27/17 12:00 0.5 MG Lorazepam 0.5 mg/ Syringe 1 ml @ 0.5 mls/min Q6H PRN IV 03/27/17 01:00 04/26/17 00:59 03/27/17 04:17 0.5 MLS/MIN (Venus Reed, ODALYS) Objective Vital Signs Date Time Temp Pulse Resp B/P (MAP) Pulse Ox O2 Delivery O2 Flow Rate FiO2 03/27/17 07:55 Room Air 03/27/17 07:55 36.6 68 15 103/61 (75) 98 Room Air 03/27/17 00:15 Room Air CPAP 1/18/18 22:58 36.7 71 17 98/63 (75) 98 Room Air 03/26/17 17:40 37.3 78 18 123/80 (94) 96 Room Air 03/26/17 16:20 Room Air 03/26/17 15:01 36.7 65 18 111/72 (85) 98 Room Air (Venus Reed ., PA-C) Physical Exam General Appearance: no apparent distress Eyes: normal inspection, PERRL ENT: hearing grossly normal Neck: supple Respiratory/Chest: lungs clear, no respiratory distress, no accessory muscle use Cardiovascular: regular rate, rhythm Abdomen: normal bowel sounds, non tender, soft Extremities: no pedal edema, no calf tenderness Neurologic/Psychiatric: alert, oriented x 3, + depressed affect Skin: normal color, warm/dry, no rash (Venus Reed ., PA-C) Assessment and Plan 42 y/o female with h/o obesity s/p gastric sleeve, depression/anxiety, severe osteoarthritis, consulted for possible serotonin syndrome Possible serotonin syndrome secondary to interaction with Trintellex and Ultram: - No hyperthermia, tachycardiac, hypertension, N/V/D, diaphoresis, clonus - IV Ativan PRN for tremors - Stop Ultram - Hold Trintellex- as interaction w/ Ultram and s/s resolved, can resume at discharge s/p bilateral TKA by Dr. Spencer on 03/25: - Surgical management, pain management, PT/OT, and DVT prophylaxis as per primary team -- Roxicodone, Oxycodone, IV Tylenol, and IV Dilaudid for pain management - Bowel regimen ordered - Encourage incentive spirometer - CBC and PRP- STABLE Anxiety, depression: - Trintellex held as above - IV Ativan PRN Migraine: Imitrex PRN Hyperthyroidism: Continue Methimazole ANIL: CPAP HS GERD, GI prophylaxis: Zantac HS DVT prophylaxis: Lovenox SQ daily as per surgical team Code Status: LEVEL I, FULL Dispo: Discharge as per primary team Patient is medically stable, will sign off. Please call with any new questions/ concerns. (Venus Reed, PA-C) Supervising Note Dr. Flores I performed a history and physical examination on the patient. I reviewed above note and agree with it. I discussed plan with APC and patient. During my face to face encounter with the patient, I answered all of the patient's questions. Patient does not appear to be having serotonin syndrome given the lack of hypertension, tachycardia, hyperthermia. Will sign off the case. Thank you for allowing us to participate on the care of this patient. (Pako Flores M.D.)
[2017-03-27 15:36] VITALS: BP 99/66; PULSE 83; TEMP 36.8; O2SAT 93
[2017-03-27] MEDS: PROPRANOLOL HCL 20 MG TAB PO SCH (20:55)
[2017-03-27] MEDS: SENNA 8.6 MG TAB PO SCH (21:07)
[2017-03-27] MEDS: RANITIDINE HCL 150 MG TAB PO SCH (21:07)
[2017-03-27] MEDS: METHIMAZOLE 5 MG TAB PO SCH (21:07)
[2017-03-27 23:25] VITALS: BP 120/76; PULSE 108; TEMP 37.3; O2SAT 98
[2017-03-28] MEDS: ACETAMINOPHEN IV 1000MG/100ML IV SCH ×2 (00:11→06:17)
[2017-03-28] MEDS: ONDANSETRON INJ 2 MG/ML 2 ML VIAL IV PRN ×2 (00:14→12:58)
[2017-03-28] MEDS: HYDROmorphone INJ 0.5 MG/0.5 ML SYR IV PRN ×3 (04:10→13:00)
[2017-03-28] MEDS: OXYCODONE HCL IR 5 MG TAB (IMMEDIATE RELEASE) PO PRN ×2 (05:29→10:17)
--- NOTE | 2017-03-28 07:52 | Orthopedic Progress Note ---
Orthopedic Progress Note Date of Service Mar 28, 2017. Subjective Post OP Day: 3 Reports: complaints (Pain, pt does not appear real motivated to move) Objective calves soft nontender, N/V intact, incision C/D/I, toes mobile Date Time Temp Pulse Resp B/P (MAP) Pulse Ox O2 Delivery O2 Flow Rate FiO2 03/28/17 00:10 Room Air 03/27/17 23:25 37.3 108 18 120/76 (91) 98 Room Air 03/27/17 16:05 Room Air 03/27/17 15:36 36.8 83 16 99/66 (77) 93 Room Air 03/27/17 07:55 Room Air 03/27/17 07:55 36.6 68 15 103/61 (75) 98 Room Air Assessment & Plan Assessment: POD Bilateral TKA ? Serotonin Syndrome Sleep apnea with CPAP, hyperthyroidism and anxiety; h/o gastric sleeve placement Plan: PT/OT Planning for [facility] (approved for transfer) Medical Management - appreciate Dr Larry' consult Attending Addendum I have seen and examined the patient, and agree with MEG Chadwick's assessment and plan. Gume Brewer MD Orthopedic Surgery Inhouse Planning Pain Management: Oxycontin, Morphine, IV Tylenol, Oxy IR DVT Prophylaxis: TEDs, SCDs, Lovenox Discharge Planning Discharge Planning: rehab hospital
[2017-03-28 08:00] VITALS: BP 106/70; PULSE 77; TEMP 36.7; O2SAT 93
[2017-03-28] MEDS: OXYCODONE HCL 10 MG TABCR (OXYCONTIN) PO SCH (08:48)
[2017-03-28] MEDS: MULTIVITAMIN TAB PO SCH (08:49)
[2017-03-28] MEDS: DOCUSATE SODIUM 100 MG CAP PO SCH (08:49)
[2017-03-28] MEDS: LORAZEPAM INJ 0.5 MG in SYRINGE 0.75 ML IV PRN (08:49)
[2017-03-28] MEDS: ENOXAPARIN 40 MG/0.4 ML SYR SQ SCH (08:50)
[2017-03-28 11:48] VITALS: BP 106/70; PULSE 77; TEMP 36.7; O2SAT 93
== END 2017-03-28 13:15 | DRG 462 ==
LOC: C.ACU 05:59 → C.3E 11:27 → ENRESERV 12:02
PROVIDERS: ADMIT Orthopaedic Surgery; ATTEND Orthopaedic Surgery
PROC: 0SRC0J9 Replacement of Right Knee Joint with Synthetic Substitute, Cemented, Open Approach (ICD-10-PCS; principal; 2017-03-25 08:15)
PROC: 0SRD0J9 Replacement of Left Knee Joint with Synthetic Substitute, Cemented, Open Approach (ICD-10-PCS; principal; 2017-03-25 08:15)
DX: M17.0 Bilateral primary osteoarthritis of knee (principal); G47.30 Sleep apnea, unspecified; F41.9 Anxiety disorder, unspecified; E05.90 Thyrotoxicosis, unspecified without thyrotoxic crisis or storm; G25.89 Other specified extrapyramidal and movement disorders; T40.0X5A Adverse effect of opium, initial encounter; T43.225A Adverse effect of selective serotonin reuptake inhibitors, initial encounter; Z79.899 Other long term (current) drug therapy; Z98.84 Bariatric surgery status